=== PATIENT | male | born 1975 | race Caucasian/White ===

== ENCOUNTER 2022-07-02 03:53 | Emergency (ER) | payer BC, SELFPAY ==
[2022-07-02 03:59] VITALS: BP 133/79; PULSE 59; RESP 16; O2SAT 98; BMI 30.4
[2022-07-02 04:05] VITALS: TEMP 36.2
--- NOTE | 2022-07-02 04:10 | ED.GENADULT ---
HPI - General Adult General Time Seen by Provider: 04:10 Date Seen: 07/02/22 Chief complaint: Dizziness/Vertigo Stated complaint: Dizzy, Nauseated Time Seen by Provider: 07/02/22 04:10 Source: patient, family, RN notes reviewed and old records reviewed Mode of arrival: ambulatory Limitations: no limitations History of Present Illness HPI narrative: Patient is a very pleasant 47-year-old gentleman with a history of bipolar disorder currently on lithium who comes to the emergency room with his christina for dizziness nausea and increasing tremor. Patient notes that he and the rest the family was sick about 3 weeks ago. Nobody got tested at this time but they felt that maybe this was influenza. Patient states that he was quite tired but had been working on getting his strength back and was feeling better. He notes that on MondayJune 27 or 5 days ago he cut out sugar because he was continued to feel sluggish. He attributed this to all the sugary foods during the holidays and the fact that he drinks Mountain Dew. He was experiencing some nausea. He notes that he had been sleeping okay and his energy as far as working out has been normal and he has not had any weakness but he had been nauseated without vomiting up until today. Today the dizziness started and he describes is as lightheadedness and denies vertigo. He notes that his tremors which are usually present with activity seemed to be worse than usual today. At 1 point his states he looked very pale because he was experiencing nausea but his color improved after a nap. He has not had any diarrhea fever cold cough difficulty breathing chest pain. He thought that his shoe seemed a little bit tight and was wondering about some swelling in the distal aspect of his left foot. Denies any injury. He also denies belly pain use of alcohol. He has not had a lithium level checked in some time. He has a new medication as of 2 weeks ago for toenail fungus that Dr. Sarai cazlada put him on. He has been taking this for 2 weeks. Patient denies any belly pain or chest pain. Denies numbness or tingling. Related Data Home Medications Medication Instructions Recorded Confirmed atorvastatin 40 mg tablet mg 07/02/22 fluticasone propionate 50 intranasal 07/02/22 mcg/actuation nasal spray,suspension lamotrigine 200 mg tablet mg 07/02/22 lithium carbonate 300 mg tablet mg 07/02/22 propranolol 20 mg tablet mg 07/02/22 quetiapine 25 mg tablet mg 07/02/22 tamsulosin 0.4 mg capsule mg PO 07/02/22 terbinafine HCl 250 mg tablet mg 07/02/22 Allergies Allergy/AdvReac Type Severity Reaction Status Date / Time No Known Drug Allergies Allergy Verified 07/02/22 03:57 Review of Systems Status of ROS: Reports: 10 or more systems reviewed and unremarkable except as noted in History and below Const: Reports: fatigue; Denies: fever or chills Eyes: Denies: change in vision ENMT: Denies: throat pain, neck pain or difficulty swallowing Cardio: Reports: swelling of feet/ankles (Distal top of left foot); Denies: chest pain, edema or shortness of breath with exertion Resp: Denies: shortness of breath, cough or wheezing GI: Reports: nausea; Denies: abdominal pain, vomiting, diarrhea, difficulty swallowing or blood in stool : Denies: painful urination or urinary frequency Musculo: Denies: back pain, neck pain or extremity pain Integ/Breast: Denies: rash or itching Neuro: Denies: headache, numbness in extremities or weakness in extremities Endo: Reports: fatigue Allergy/Immuno: Denies: wheezing PFSH PFSH Social History Smoking Status: Former smoker Do you use any of these nicotine containing products: None Second hand tobacco smoke exposure: No How often do you have a drink containing alcohol: never How often do you have six or more drinks on one occasion: Never AUDIT-C Alcohol total score: 0 Non-prescribed substance use: denies use service: No Exam Narrative: Exam Narrative: Alert and oriented. Not in any acute distress. EOM is full with no nystagmus. His atraumatic normocephalic. Neck is supple without lymphadenopathy. Face is symmetrical Heart with regular rate and rhythm. Lungs are clear to auscultation. Abdomen is soft nontender. Lower extremities without edema. I do not appreciate any significant edema of the foot. No calf tenderness noted. Upper extremity motor and strength intact. Tremor only with intentional movement. Resting tremor. Const: Vital Signs, click to edit/add: Vital Signs - 24 hr 07/02/22 03:59 07/02/22 04:05 07/02/22 05:49 Temperature 97.2 F L Pulse Rate [Pulse Oximeter] 59 L 55 L Respiratory Rate 16 16 Blood Pressure [Ri ght Upper Arm] 133/79 109/69 Pulse Oximetry 98 98 Oxygen Delivery Me thod Room Air Room Air Documenting provider has reviewed patient's vital signs: yes Course Vital Signs Vital signs: Initial Vital Signs Pulse Rate 59 L 07/02/22 03:59 Pulse Rhythm 07/02/22 03:59 Respiratory Rate 16 07/02/22 03:59 Blood Pressure 133/79 07/02/22 03:59 Blood Pressure Mean 97 07/02/22 03:59 Pulse Oximetry 98 07/02/22 03:59 Oxygen Delivery Method 07/02/22 03:59 Vital Signs Pulse Rate 59 L 07/02/22 03:59 Respiratory Rate 16 07/02/22 03:59 Blood Pressure 133/79 07/02/22 03:59 Pulse Oximetry 98 07/02/22 03:59 Oxygen Delivery Method 07/02/22 03:59 Temperature 97.2 F L 07/02/22 04:05 Pulse Rate 55 L 07/02/22 05:49 Respiratory Rate 16 07/02/22 05:49 Blood Pressure 109/69 07/02/22 05:49 Pulse Oximetry 98 07/02/22 05:49 Oxygen Delivery Method 07/02/22 05:49 Medical Decision Making [facility] Narrative Medical decision making narrative: 1. Dizziness -this is not vertiginous in nature. This seems to be related to the nausea when it happens. No focal weakness or neurological deficits. Suggest continued monitoring and seeking medical attention if this does worsen. No evidence of stroke-like symptoms. Ambulating normally. Tremor patient describes is chronic and not present at rest. 2. Nausea-I think this is likely a cut secondary to the oral antifungal initiated 2 weeks ago. Patient agrees with this stating that it seems like things started worsening when he started taking that medication. Currently he is also taking atorvastatin as well as lithium. Although is liver function tests are normal I suspect that perhaps the combination of medications is altering lithium metabolism. Patient is not confused, does not have slurred speech to indicate lithium toxicity at this time. There is a level pending. Magnesium level is normal. Abdominal exam is benign. A CK is normal. 3. Disposition -patient will be discharged home. I do explain to him that laboratory values are very reassuring today but given the medications he is taking I do 10 think the terbinafine is likely the underlying cause of his discomfort. Of course, for onset of new or worsening symptoms would have him return to the ER for further evaluation. Patient feels comfortable with our plan. Will discontinue the oral antifungal and skip this morning's dose of lithium. Medical Records Medical records reviewed: Yes I reviewed the patient's medical records Lab Data Lab results reviewed: Yes I reviewed the patient's lab results Labs: Lab Results 07/02/22 07/02/22 07/02/22 Range/Units 04:35 04:35 04:35 WBC 7.85 (4.50-11.00) K/uL RBC 4.31 (4.30-5.90) m/uL Hgb 12.8 L (13.5-17.5) gm/dL Hct 38.0 (37.0-53.0) % MCV 88 (80-100) fL MCH 30 (26-34) pg MCHC 34 (32-36) gm/dL RDW Coeff of Rodrigo 12.1 (11.5-15.5) % Plt Count 236 (140-440) K/uL Neut % (Auto) 63.8 (42.0-72.0) % Lymph % (Auto) 22.0 (20-44) % Hanson % (Auto) 9.0 (0.0-11.0) % Eos % (Auto) 4.6 (0.0-7.0) % Baso % (Auto) 0.3 (0.0-3.0) % Neut # (Auto) 5.01 (1.7-7.0) K/uL Lymph # (Auto) 1.73 (0.90-2.90) K/uL Hanson # (Auto) 0.70 (0.00-0.90) K/UL Eos # (Auto) 0.36 (0.00-0.50) K/uL Baso # (Auto) 0.02 (0.00-0.30) K/uL Sodium 138 (135-149) mmol/L Potassium 4.0 (3.6-5.1) mmol/L Chloride 107 (96-114) mmol/L Carbon Dioxide 25 (20-32) mmol/L BUN 17 (5-24) mg/dL Creatinine 1.3 (0.5-1.5) mg/dL Estimated Creat Clear 66.50 Estimated GFR 67 ml/min Glucose 101 (60-115) mg/dL Calcium 9.0 (8.4-10.6) mg/dL Magnesium 2.0 (1.5-2.6) mg/dL Total Bilirubin 0.5 (0.1-1.5) mg/dL AST 25 (12-35) U/L ALT 22 (4-50) U/L Alkaline Phosphatase 59 (40-150) U/L Total Creatine Kinase 166 (54-186) U/L C-Reactive Protein < 0.5 L (0.5-1.0) mg/dL Total Protein 7.0 (6.0-8.3) g/dL Albumin 4.4 (3.3-5.0) g/dL Lipase 126 (23-300) U/L Urine Color (Yellow) Urine Appearance (Clear) Urine pH (5.0-8.5) Ur Specific Paramount (1.000-1.030) Urine Protein (Negative) Urine Glucose (UA) (Negative) Urine Ketones (Negative) Urine Blood (Negative) Urine Nitrite (Negative) Urine Bilirubin (Negative) Urine Urobilinogen (0.2-1.0) Ur Leukocyte Esterase (Negative) Urine RBC (0-2) Urine WBC (0-5) Ur Squamous Epith Cells (None-Few) Urine Bacteria (None) SARS-CoV-2 (PCR) Negative SARS-CoV-2 (Negative) Influenza Type A (PCR) Negative PCR FLU A (Negative) Influenza Type B (PCR) Negative PCR FLU B (Negative) RSV (PCR) Negative PCR RSV (Negative) 07/02/22 Range/Units 05:00 WBC (4.50-11.00) K/uL RBC (4.30-5.90) m/uL Hgb (13.5-17.5) gm/dL Hct (37.0-53.0) % MCV (80-100) fL MCH (26-34) pg MCHC (32-36) gm/dL RDW Coeff of Rodrigo (11.5-15.5) % Plt Count (140-440) K/uL Neut % (Auto) (42.0-72.0) % Lymph % (Auto) (20-44) % Hanson % (Auto) (0.0-11.0) % Eos % (Auto) (0.0-7.0) % Baso % (Auto) (0.0-3.0) % Neut # (Auto) (1.7-7.0) K/uL Lymph # (Auto) (0.90-2.90) K/uL Hanson # (Auto) (0.00-0.90) K/UL Eos # (Auto) (0.00-0.50) K/uL Baso # (Auto) (0.00-0.30) K/uL Sodium (135-149) mmol/L Potassium (3.6-5.1) mmol/L Chloride (96-114) mmol/L Carbon Dioxide (20-32) mmol/L BUN (5-24) mg/dL Creatinine (0.5-1.5) mg/dL Estimated Creat Clear Estimated GFR ml/min Glucose (60-115) mg/dL Calcium (8.4-10.6) mg/dL Magnesium (1.5-2.6) mg/dL Total Bilirubin (0.1-1.5) mg/dL AST (12-35) U/L ALT (4-50) U/L Alkaline Phosphatase (40-150) U/L Total Creatine Kinase (54-186) U/L C-Reactive Protein (0.5-1.0) mg/dL Total Protein (6.0-8.3) g/dL Albumin (3.3-5.0) g/dL Lipase (23-300) U/L Urine Color Yellow (Yellow) Urine Appearance Clear (Clear) Urine pH 6.5 (5.0-8.5) Ur Specific Paramount 1.025 (1.000-1.030) Urine Protein Negative (Negative) Urine Glucose (UA) Negative (Negative) Urine Ketones Negative (Negative) Urine Blood Negative (Negative) Urine Nitrite Negative (Negative) Urine Bilirubin Negative (Negative) Urine Urobilinogen 0.2 (0.2-1.0) Ur Leukocyte Esterase Negative (Negative) Urine RBC 0-2 (0-2) Urine WBC 0-2 (0-5) Ur Squamous Epith Cells Few (None-Few) Urine Bacteria None (None) SARS-CoV-2 (PCR) (Negative) Influenza Type A (PCR) (Negative) Influenza Type B (PCR) (Negative) RSV (PCR) (Negative) Discharge Plan Discharge Clinical Impression: Adverse reaction to drug Patient Disposition: Home, Self-Care Condition: Unchanged Additional Instructions: Hold your antifungal medication at this time. Skip morning dose of lithium. If you note you are feeling better you may resume lithium at night. Recommend pushing fluids. The labs today were normal a and include a CBC, liver panel, CRP or inflammatory marker, electrolyte panel, kidney panel, urinalysis. You were negative for COVID, influenza and RSV. We do not yet have the results of the lithium level. CT monitor for worsening symptoms and return as needed. Prescriptions: No Action quetiapine 25 mg tablet atorvastatin 40 mg tablet lamotrigine 200 mg tablet terbinafine HCl 250 mg tablet tamsulosin 0.4 mg capsule PO propranolol 20 mg tablet lithium carbonate 300 mg tablet fluticasone propionate 50 mcg/actuation spray,suspension INTRANASAL Follow Up/Referrals: Shen Foote MD [Staff Physician] - Stand Alone Forms: [employer] Info Instructions
[2022-07-02 04:55] LABS: Basophils Absolute Auto 0.02 K/uL (0.00-0.30); Basophils Percent Auto 0.3 % (0.0-3.0); Eosinophils Absolute Auto 0.36 K/uL (0.00-0.50); Eosinophils Percent Auto 4.6 % (0.0-7.0); Hemoglobin* 12.8 gm/dL (13.5-17.5); Immature Granulocytes Abs Auto 0.02 K/uL (0.00-0.30); Immature Granulocytes Pct Auto 0.3 %; Lymphocytes Absolute Auto 1.73 K/uL (0.90-2.90); Mean Corpuscular HGB Conc 34 gm/dL (32-36); Mean Corpuscular Hemoglobin 30 pg (26-34); Mean Corpuscular Volume 88 fL (80-100); Neutrophils Absolute Auto 5.01 K/uL (1.7-7.0); Neutrophils Percent Auto 63.8 % (42.0-72.0); Platelet Count* 236 K/uL (140-440); RDW Coefficient of Variation % 12.1 % (11.5-15.5); Red Blood Count 4.31 m/uL (4.30-5.90); White Blood Count* 7.85 K/uL (4.50-11.00)
[2022-07-02 05:00] LABS: Slide Review Reflex No
[2022-07-02 05:08] LABS: Albumin* 4.4 g/dL (3.3-5.0); Chloride* 107 mmol/L (96-114); Sodium* 138 mmol/L (135-149)
[2022-07-02 05:10] LABS: Creatinine* 1.3 mg/dL (0.5-1.5); Estimated Glomerular Filt Rate 67 ml/min
[2022-07-02 05:11] LABS: Alanine Aminotransferase* 22 U/L (4-50); Alkaline Phosphatase* 59 U/L (40-150); Aspartate Amino Transferase* 25 U/L (12-35); Bilirubin Total* 0.5 mg/dL (0.1-1.5); Blood Urea Nitrogen* 17 mg/dL (5-24); Carbon Dioxide* 25 mmol/L (20-32); Glucose* 101 mg/dL (60-115); Lipase* 126 U/L (23-300)
[2022-07-02 05:15] LABS: Appearance Urine Clear (Clear); Bilirubin Urine Negative (Negative); Blood Urine Negative (Negative); Color Urine Yellow (Yellow); Glucose Urine Negative (Negative); Ketones Urine Negative (Negative); Leukocyte Esterase Urine Negative (Negative); Nitrite Urine Negative (Negative); Protein Urine Negative (Negative); Specific Gravity Urine 1.025 (1.000-1.030); Urobilinogen Urine 0.2 (0.2-1.0); pH Urine 6.5 (5.0-8.5)
[2022-07-02 05:16] LABS: C Reactive Protein* < 0.5 mg/dL (0.5-1.0)
[2022-07-02 05:28] LABS: RBC Urine 0-2 (0-2); Squamous Epithelial Cell Urine Few (None-Few); WBC Urine 0-2 (0-5)
[2022-07-02 05:31] LABS: PCR FLU A Negative PCR FLU A (Negative); PCR FLU B Negative PCR FLU B (Negative); PCR RSV Negative PCR RSV (Negative); SARS PCR* Negative SARS-CoV-2 (Negative)
[2022-07-02 05:41] LABS: Creatine Kinase* 166 U/L (54-186)
[2022-07-02 05:49] VITALS: BP 109/69; PULSE 55; RESP 16; O2SAT 98
[2022-07-03 09:24] LABS: Lithium, Serum or Plasma 0.4 mmol/L (0.5-1.2)
== END 2022-07-02 06:03 | disposition home or self-care (01) ==
PROVIDERS: Emergency Provider Family Medicine; PCP Surgery
DX: R42 Dizziness and giddiness (principal); R11.0 Nausea; T36.7X5A Adverse effect of antifungal antibiotics, systemically used, initial encounter
CPT/HCPCS: 36415; 80053; 80178; 81001; 82550; 83690; 83735; 85025; 86140; 87502; 87634; 87635; 99283; 99284

== ENCOUNTER 2023-05-08 08:53 | Emergency (ER) | payer BC, SELFPAY ==
[2023-05-08 08:57] VITALS: BP 123/76; PULSE 78; RESP 18; TEMP 36.6; O2SAT 96; BMI 28.6
--- NOTE | 2023-05-08 09:02 | CRLHL7_ITS ---
For Patients: As a result of the Cures Act, medical imaging exams and procedure reports are released immediately into your electronic medical record. You may view this report before your referring provider. If you have questions, please contact your health care provider. INDICATION: Pain COMPARISON: none TECHNIQUE: PA chest and right ribs. FINDINGS: The lungs are clear. There is no evidence of pulmonary contusion, pneumothorax or pleural effusion. The heart and pulmonary vessels are of normal size. Oblique detail views of the ribs demonstrate no evidence of fracture or intrinsic bone lesion. There is no evidence of pleural hematoma. IMPRESSION: IMPRESSION:Negative chest and right ribs. Dictated by Krystian Bullock MD @ 05/08/2023 10:09:35 AM (Electronically Signed)
--- NOTE | 2023-05-08 09:37 | ED.GENADULT ---
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 10 days ago. continues to have pain 48-year-old man presenting to the emergency department with concern of rib pain. A week and half ago was mowing with a walk behind 0 turn mower. This involves moving with arms elevated from the sides, exposing the ribs and chest. The trigger on the left hand apparently broke loose and the more quickly swelling around striking him in the right chest. This he had to stop for bit due to the degree of pain he was having. Subsequently fixed more in continued. Since that time has had continued pain. He is taking acetaminophen. He says because of his bipolar he is not to take ibuprofen. He is having trouble sleeping due to the pain. I asked him about his medications and it sounds as though is no longer taking lithium. Related Data Home Medications Medication Instructions Recorded Confirmed atorvastatin 40 mg tablet mg 07/02/22 fluticasone propionate 50 intranasal 07/02/22 mcg/actuation nasal spray,suspension lamotrigine 200 mg tablet mg 07/02/22 lithium carbonate 300 mg tablet mg 07/02/22 propranolol 20 mg tablet mg 07/02/22 quetiapine 25 mg tablet mg 07/02/22 tamsulosin 0.4 mg capsule mg PO 07/02/22 terbinafine HCl 250 mg tablet mg 07/02/22 Allergies Allergy/AdvReac Type Severity Reaction Status Date / Time No Known Drug Allergies Allergy Verified 07/02/22 03:57 Review of Systems Status of ROS: Reports: 6 or more systems reviewed and unremarkable except as noted in History and below [facility] Social History Smoking Status: Former smoker Do you use any of these nicotine containing products: None Second hand tobacco smoke exposure: No How often do you have a drink containing alcohol: never How often do you have six or more drinks on one occasion: Never AUDIT-C Alcohol total score: 0 Non-prescribed substance use: denies use service: No Exam Narrative: Exam Narrative: Pleasant. Breathing easily. Transitions without difficulty. Skin is warm and dry. He says he has never been a marked. It is without erythema. He does have exquisite tenderness to palpation in the outer clavicular line full of inches up from the rib margin. Positive compression testing in this area as well. Lungs are clear. Heart in regular rate and rhythm. Raising right arm does cause more pain. Const: Vital Signs, click to edit/add: Vital Signs - 24 hr 05/08/23 08:57 Temperature 97.9 F Pulse Rate [Right Pulse Oximeter] 78 Respiratory Rate 18 Blood Pressure [Le ft Upper Arm] 123/76 Pulse Oximetry 96 Oxygen Delivery Me thod Room Air Documenting provider has reviewed patient's vital signs: yes Course Vital Signs Vital signs: Initial Vital Signs Temperature 97.9 F 05/08/23 08:57 Temperature Source Temporal Artery Scan 05/08/23 08:57 Pulse Rate 78 05/08/23 08:57 Respiratory Rate 18 05/08/23 08:57 Blood Pressure 123/76 05/08/23 08:57 Blood Pressure Mean 91 05/08/23 08:57 Blood Pressure Position Sitting 05/08/23 08:57 Pulse Oximetry 96 05/08/23 08:57 Oxygen Delivery Method Room Air 05/08/23 08:57 Vital Signs Temperature 97.9 F 05/08/23 08:57 Pulse Rate 78 05/08/23 08:57 Respiratory Rate 18 05/08/23 08:57 Blood Pressure 123/76 05/08/23 08:57 Pulse Oximetry 96 05/08/23 08:57 Oxygen Delivery Method Room Air 05/08/23 08:57 Temperature 97.9 F 05/08/23 08:57 Pulse Rate 78 05/08/23 08:57 Respiratory Rate 18 05/08/23 08:57 Blood Pressure 123/76 05/08/23 08:57 Pulse Oximetry 96 05/08/23 08:57 Oxygen Delivery Method Room Air 05/08/23 08:57 Medical Decision Making MDM Narrative Medical decision making narrative: Does not seem to need pain management at this time. Differential includes pneumothorax, pneumomediastinum. Ribs or cartilaginous disruption. Pneumonia X-rays of the ribs with two view chest do not appear to show any disruption. I did return low to place an ultrasound on his chest. There appears to be a disruption of at least 1 rib in the area of question I think this is in the cartilaginous rib. Probably why not appearing clearly an x-ray. He is rather tender to even light touch. Discussed potential benefit of rib binder. Reviewed medications does not appear that to be necessary to avoid ibuprofen. See patient discharge plan Discharge Plan Discharge Clinical Impression: Traumatic injury of rib Patient Disposition: Home, Self-Care Condition: Stable Additional Instructions: Wear this rib binder for comfort. Remember while you're wearing it, a few times daily, should take a few deep breaths to aerate the lungs. Consider icing a couple of times daily over the next few days. Can take ibuprofen up to 800 mg per dose which can be combined with acetaminophen up to 1000mg per dose. Remember that each tablet of [place] contains 325 mg of acetaminophen. [place] from [employer]. Prescriptions: No Action quetiapine 25 mg tablet atorvastatin 40 mg tablet lamotrigine 200 mg tablet terbinafine HCl 250 mg tablet tamsulosin 0.4 mg capsule PO propranolol 20 mg tablet lithium carbonate 300 mg tablet fluticasone propionate 50 mcg/actuation spray,suspension INTRANASAL Follow Up/Referrals: Titus Delarosa MD [Staff Physician] - Stand Alone Forms: [employer] Info Instructions
--- OUTSIDE RECORDS SUMMARY | 2023-05-08 10:04 | XMS_ITS | Continuity of Care Document ---
Author Name Unknown Organization [facility] Address [address] [place] [address] Phone Care Team Providers Care Dcs Engineer Name Role Phone Arvin OAKLEY, PhD, [place] Unavailable Unavai lable Medications Medication Instructions Dosage Effective Dates (start - stop) Status Comments TRAMADOL HCL (unknown strength) Not Available - Active Procedures Procedure Date Office/Outpatient Visit,[facility] [place] 2018 X-Ray Exam Lwr Spine, Min 4 Views Advance Directives Directive Yes / No Effective Date File Name No Information Encounters Encounter Description Practice Location Reason(s) For Visit Diagnoses Date Provider Providers Copied on Encounter Office/Outpat ient Visit,[facility], [facility] [place] [facility], [address], [place], [place], [id number], [place] tel:[phone] [facility] Other intervertebral disc displacement, lumbar regionLow back pain Arvin Loja. [facility], [address] [place] [address], [place], [address], [place]. tel:[phone] Referring Provider: Zach Rowe [facility] [address] [place], [address]. tel:[phone] Family History Family Member Type Diagnosis Age At Onset No Information Payers Payer name Insurance type Covered libertarian ID Authoriza tialfredito(s) [employer] [place] [id number] Social History Type Description Quantity Date Captured Comments Alcohol Use Details Unknown Caffeine Use Details Unknown Tobacco Use Status Ex-cigarette smoker 019 Smoking Status Former smoker Smoking Tobacco Use Details Cigarette: No Details Available Cigarette: No Details Available Sex Male Vital Signs Date / Time: Height Weight BMI Pulse Rate Blood Pressure Temperature Respiratory Rate Body Surface Area Head Circumference Head Circ. Percentile Wt./Dennys. Percentile BMI percentile Pulse Ox Inhaled Ox 1:32 PM 67.75 in 91.081 kg (200.80 lbs) 30.7 6 kg/m eter (2) 89 /min 124/79 mm[Hg] Chief Complaint And Reason For Visit No Information Reason For Referral Reason For Referral No Information History Of Present Illness Encounter Date Complaint History Of Prese nt Illness No Information Functional Status Date Functional Assessmen t No Information Instructions Date Instruction Additional Infor mation No Information Assessments Type Assessment Date assessment Other intervertebral disc displa cement, lumbar region assessment Low back pain Patient Care Teams Name Effective Dates (start - stop) Status Members No Information
== END 2023-05-08 11:47 | disposition home or self-care (01) ==
PROVIDERS: Emergency Provider Family Medicine; PCP Student in an Organized Health Care Education/Training Program
DX: S29.8XXA Other specified injuries of thorax, initial encounter (principal); W22.8XXA Striking against or struck by other objects, initial encounter; Y93.H2 Activity, gardening and landscaping
CPT/HCPCS: 71101; 99283; 99284

== ENCOUNTER 2024-07-01 09:14 | Emergency (ER) | payer BC, SELFPAY ==
[2024-07-01 09:31] VITALS: BP 127/78; PULSE 66; RESP 18; TEMP 36.6; O2SAT 96; BMI 28.9
== END 2024-07-01 11:50 | disposition left against medical advice (07) ==
LOC: ED 11:49
PROVIDERS: PCP Student in an Organized Health Care Education/Training Program
DX: Z53.21 Procedure and treatment not carried out due to patient leaving prior to being seen by health care provider (principal)